=== PATIENT | female | born 1995 | race Caucasian/White ===

== ENCOUNTER 2018-01-31 09:42 | Emergency (ER) | END 2018-01-31 10:20 | disposition home or self-care (01) ==

== ENCOUNTER 2018-12-21 21:27 | Emergency (ER) | payer BC, MEDICAID ==
[~2018-12-21] VITALS: Ht 160 cm; Wt 79.1 kg
[~2018-12-21 21:27] MED LIST: DICY10CA40 PO; LOPE2CAP PO; ONDA4TAB8 PO
[2018-12-21 21:29] VITALS: Ht 160 cm; Wt 79.1 kg
--- NOTE | 2018-12-22 00:49 | ERD ---
ER Documentation Chief Complaint Chief Complaint vomiting and diarrhea HPI The patient is a 23-year-old female, presenting to the ER because of vomiting and diarrhea and general body pain that began today an hour after eating at [employer]. She denies fever, hematemesis, hematochezia, dysuria. She does not smoke nor drink, LMP was November 28, 2018 This medical/surgical history: None ROS All systems reviewed and are negative except as per history of present illness. Medications Home Meds Active Scripts Loperamide Hcl* (Imodium*) 2 Mg Capsule, 2 MG PO .AFTER EA LOOSE BM PRN for DIARRHEA, #10 TAB Prov:JEFE BAUER MD 12/22/18 Loperamide Hcl* (Imodium*) 2 Mg Capsule, 4 MG PO .AFTER EA LOOSE BM PRN for DIARRHEA, #10 TAB Prov:JEFE BAUER MD 12/22/18 Ondansetron (Ondansetron Odt) 4 Mg Tab.rapdis, 4 MG PO Q6H PRN for NAUSEA AND/OR VOMITING, #10 TAB Prov:JEFE BAUER MD 12/22/18 Dicyclomine HCl (Dicyclomine HCl) 10 Mg Capsule, 10 MG PO TID, #15 Prov:ANDREE TAVAREZ 01/31/18 Loperamide Hcl* (Imodium*) 2 Mg Capsule, 2 MG PO .AFTER EA LOOSE BM PRN for DIAR ROSENDO, #10 TAB Prov:ANDREE TAVAREZ 01/31/18 Ondansetron Hcl* (Zofran*) 4 Mg Tablet, 4 MG PO Q6H for NAUSEA AND/OR VOMITING, #30 TAB Prov:ANDREE TAVAREZ 01/31/18 Allergies Allergies: Coded Allergies: No Known Allergy (Unverified , 12/22/18) PMhx/Soc Medical and Surgical Hx: pt denies Medical Hx, pt denies Surgical Hx Hx Alcohol Use: No Hx Substance Use: No Hx Tobacco Use: No Smoking Status: Never smoker Physical Exam Vitals Vital Signs Date Temp Pulse Resp B/P (MAP) Pulse Ox O2 O2 Flow FiO2 Time Delivery Rate 12/21/18 99.5 107 20 136/84 97 21:29 (101) Physical Exam Const: No acute distress. Head: Atraumatic. Eyes: Normal Conjunctiva. ENT: Normal External Ears, Nose and Mouth. Neck: Full range of motion. No meningismus. Resp: Clear to auscultation bilaterally. Cardio: Regular rate and rhythm. Abd: Soft, non distended, normal bowel sounds, non tender. Skin: No petechiae or rashes. Back: No midline or flank tenderness. Ext: No cyanosis, or edema. Neur: Awake and alert. No focal deficit Psych: Normal Mood and Affect. Results 24 hrs Current Medications Medications Dose Sig/Kory Start Time Status Last (Trade) Ordered Route PRN Stop Time Admin Dose Reason Admin Ondansetron 4 mg ONCE STAT 12/22/18 DC 12/22/18 HCl (Zofran ODT 01:05 01:12 Odt) 12/22/18 01:06 Loperamide 4 mg ONCE ONCE 12/22/18 12/22/18 HCl PO 01:30 01:12 (Imodium Cap) 12/22/18 01:31 Procedures/MDM MEDICAL MAKING DECISION: The patient is a 23-year-old female, presenting with acute vomiting diarrhea, most likely due to acute food poisoning, was treated with Zofran ODT and Imodium for nausea and diarrhea with good response, is stab le for outpatient follow-up The differential diagnoses considered include but are not limited to food poisoning, gastroenteritis, uti, colitis, cholelithiasis Departure Diagnosis: Primary Impression: Vomiting and diarrhea Condition: Good Comments She was discharged with Imodium and Zofran ODT The patient's blood pressure was elevated (>120/80) but appears stable without evidence of hypertension emergency or urgency. The patient was counseled about the risks of hypertension and urged to pursue outpatient monitoring and therapy within a week with their primary care physician. I discussed the findings with the patient. I advised the patient to follow-up wi th the primary physician in about 2-3 days, sooner if needed and return if any concern. Disclaimer: Inadvertent spelling and grammatical errors are likely due to EHR/dictation software use and do not reflect on the overall quality of patient care. Also, please note that the electronic time recorded on this note does not necessarily reflect the actual time of the patient encounter. JEFE BAUER MD Dec 22, 2018 00:49
[2018-12-22] MEDS ORDERED: ONDANSETRON (ODT) 4 MG TAB ODT STA (01:05)
[2018-12-22] MEDS ORDERED: ONDA4TAB14 PO (01:07)
[2018-12-22] MEDS ORDERED: LOPE2CAP PO ×2 (01:07→01:08)
[2018-12-22] MEDS ORDERED: LOPERAMIDE 2 MG CAP PO ONE (01:30)
[2018-12-22 01:35] VITALS: BP 127/71; PULSE 70; RESP 17
== END 2018-12-22 01:36 | disposition home or self-care (01) ==
LOC: E/R 21:27
DX: R11.10 Vomiting, unspecified (principal); R19.7 Diarrhea, unspecified
CPT/HCPCS: Z7502; Z7610; 99283